=== PATIENT | female | born 1975 | race Caucasian/White ===

== ENCOUNTER 2020-09-23 13:28 | Outpatient (CLI) | payer OTHER, SELFPAY ==
--- NOTE | 2020-09-23 13:33 | MM_ITS ---
WS: [id number] BILATERAL DIGITAL SCREENING MAMMOGRAPHY WITH CAD CLINICAL INFORMATION: SCREENING HISTORY: Screening mammogram. No current complaints. COMPARISON: TECHNIQUE: Bilateral CC and MLO views. FINDINGS: The breasts are composed of heterogeneous fibroglandular density tissue, which can limit the detectio n of small underlying mass lesions. No suspicious mass, asymmetry, calcifications, or architectural d istortion. No evidence of malignancy. Vascular calcification. MM/[place] [id number] IMPRESSION: BI-RADS: 2-Benign FOLLOW UP: 1 Year Follow-up Recommend return to annual screening mammography.
== END 2020-09-23 13:29 | disposition home or self-care (01) ==
LOC: RADSHAW 13:31
PROVIDERS: PCP Family Medicine; Visit Provider Family Medicine
DX: Z12.31 Encounter for screening mammogram for malignant neoplasm of breast (principal)
CPT/HCPCS: 77067

== ENCOUNTER 2023-11-29 14:17 | Outpatient (CLI) | payer OTHER, SELFPAY ==
--- NOTE | 2023-11-29 14:47 | MM_ITS ---
WS: [id number] BILATERAL 3D TOMOSYNTHESIS DIGITAL DIAGNOSTIC MAMMOGRAPHY WITH CAD CLINICAL INFORMATION: LT BR LUMP HISTORY: LEFT breast lump. COMPARISON: 2020 TECHNIQUE: Bilateral CC, MLO, and ML views. FINDINGS: The breasts are composed of heterogeneous fibroglandular density, which can limit the detection of sm all underlying mass lesions. A few incidental punctate and clustered calcifications. Palpable marker upper outer LEFT breast posterior depth. No suspicious parenchymal findings in this area. Ultrasound is pending. RIGHT breast is unremarkable. ULTRASOUND BREAST LEFT TECHNIQUE: Ultrasound left breast focused area of concern. CLINICAL INFORMATION: LT BR LUMP FINDINGS: Ultrasound LEFT breast area of concern at the 2 o'clock position 12 cm from the nipple. Dense underly ing parenchymal tissue. No cystic or solid lesions. No suspicious findings to target for biopsy. Find ings are benign. IMPRESSION: MM/[place] [id number] BI-RADS: 2-Benign FOLLOW UP: 1 Year Follow-up Recommend return to annual screening mammography.
== END 2023-11-29 14:18 | disposition home or self-care (01) ==
LOC: RAD 14:18
PROVIDERS: PCP Family Medicine; Visit Provider Family Medicine
DX: N63.21 Unspecified lump in the left breast, upper outer quadrant (principal)
CPT/HCPCS: 76642; 77062; G0279

== ENCOUNTER → 2024-01-20 13:13 | Outpatient (BNVA) | payer OTHER, SELFPAY | PROVIDERS: PCP Family Medicine; Visit Provider Emergency Medicine | DX: J02.9 Acute pharyngitis, unspecified (principal) | CPT/HCPCS: 87880 ==

== ENCOUNTER → 2025-09-16 09:39 | Outpatient (BNVA) | payer OTHER, SELFPAY | PROVIDERS: PCP Family Medicine; Visit Provider Family Medicine Adult Medicine | DX: R39.9 Unspecified symptoms and signs involving the genitourinary system (principal) | CPT/HCPCS: 81000 ==